=== PATIENT | female | born 1985 | race Caucasian/White ===

== ENCOUNTER 2024-10-31 19:15 | Emergency (ER) | payer OTHER, SELFPAY ==
[2024-10-31 20:07] VITALS: BP 130/83; PULSE 82; RESP 16; TEMP 36.8; O2SAT 100; BMI 19.5
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
== END 2024-10-31 21:19 | disposition home or self-care (01) ==
LOC: SERX 21:09
PROVIDERS: Emergency Provider Emergency Medicine
DX: T23.272A Burn of second degree of left wrist, initial encounter (principal); T31.0 Burns involving less than 10% of body surface; X10.1XXA Contact with hot food, initial encounter
CPT/HCPCS: 99282